=== PATIENT | female | born 1975 | race Caucasian/White ===

== ENCOUNTER 2018-07-23 20:10 | Emergency (ER) | payer BC ==
[~2018-07-23] VITALS: Ht 175.3 cm; Wt 63.5 kg
[2018-07-23] MEDS ORDERED: LORAZEPAM INJ 2 MG/ML VIAL ONE ×2 (20:50→21:44)
--- NOTE | 2018-07-23 20:50 | NUR ---
PT PRESENTED TO THE ER WITH A C/O SEIZURE. PT STATED THAT SHE IS HAVING MUSCLE SPASMS SINCE THIS AM.
--- NOTE | 2018-07-23 20:55 | NUR ---
BLOOD DRAW DONE AT THE BEDSIDE.
--- NOTE | 2018-07-23 20:58 | NUR ---
PT REC'D MEDICATION ORDERED.
[2018-07-23] MEDS ORDERED: LORAZEPAM INJ 2 MG/ML VIAL IVP ONE ×2 (21:00→21:30)
[2018-07-23 21:02] LABS: BASOPHILS % (AUTO) 0.7 % (0.0-2.0); EOSINOPHILS % (AUTO) 1.1 % (0.0-6.0); HEMATOCRIT 41 % (33-45); HEMOGLOBIN 13.7 g/dL (11.5-14.8); LYMPHOCYTES % (AUTO) 59.1 % (20.0-44.0); MEAN CORPUSCULAR HGB CONC 34 g/dl (31.0-36.0); MEAN CORPUSCULAR VOLUME 89 fL (82-100); MONOCYTES # (AUTO) 0.2 /CMM (0.1-1.30); MONOCYTES % (AUTO) 4.8 % (2.0-12.0); NEUTROPHILS # (AUTO) 1.8 /CMM (1.8-8.9); NEUTROPHILS % (AUTO) 34.3 % (43.0-81.0); PLATELET COUNT (AUTO) 208 /CMM (150-450); WHITE BLOOD COUNT (AUTO) 5.1 K/uL (4.3-11.0)
--- NOTE | 2018-07-23 21:06 | NUR ---
PT LEFT FOR CT VIA GURNEY.
[2018-07-23 21:12] LABS: CALCIUM, SERUM 8.8 mg/dL (8.5-10.1); CREATININE 0.8 mg/dL (0.6-1.3); POTASSIUM 4.1 mmol/L (3.5-5.1)
[2018-07-23 21:17] LABS: ALBUMIN 3.9 g/dL (3.4-5.0); BILIRUBIN,TOTAL 0.1 mg/dL (0.2-1.0); TOTAL PROTEIN, SERUM 8.4 g/dL (6.4-8.2)
[2018-07-23 21:39] LABS: LYMPHOCYTES % (MANUAL) 59 % (16-48); MONOCYTES % (MANUAL) 1 % (0-11.0); NEUTROPHILS % (MANUAL) 40 (42-76)
--- NOTE | 2018-07-23 22:14 | NUR ---
IV removed. Catheter intact and site benign. Pressure and 4x4 applied to site. No bleeding noted. Patient discharged to home in stable condition. Written and verbal after care instructions given. Patient verbalizes understanding of instruction AND RX. PT AMBULATED OUT WITH A STEADY GAIT. VSS
[2018-07-23 22:15] VITALS: BP 125/75
== END 2018-07-23 22:15 | disposition home or self-care (01) ==
LOC: ER 20:13
DX: R25.1 Tremor, unspecified (principal); F10.20 Alcohol dependence, uncomplicated; F41.9 Anxiety disorder, unspecified; Y90.9 Presence of alcohol in blood, level not specified
CPT/HCPCS: 36415; 70450; 80048; 80076; 85025; 96374; 96376; 99284; A4606; J2060 ×2

== ENCOUNTER 2019-01-15 16:55 | Emergency (ER) | payer BC, OTHER ==
[2019-01-15] MEDS ORDERED: ONDANSETRON HCL/PF 4 MG/2 ML VIAL ONE ×2 (17:25→18:32)
[2019-01-15] MEDS ORDERED: LORAZEPAM INJ 2 MG/ML VIAL ONE ×2 (17:26→18:33)
[2019-01-15] MEDS ORDERED: LORAZEPAM INJ 2 MG/ML VIAL IVP ONE (17:30)
[2019-01-15] MEDS ORDERED: Folic acid 1 MG in IV D5W 50 ML IV ONE (17:30)
[2019-01-15] MEDS ORDERED: ONDANSETRON HCL/PF 4 MG/2 ML VIAL IVP ONE (17:30)
[2019-01-15] MEDS ORDERED: Thiamine 100 MG in IV D5W 50 ML IV SCH (17:30)
[2019-01-15] MEDS ORDERED: IV NS 0.9% 1,000 ML BAG IV ONE ×2 (17:30→18:30)
[2019-01-15] MEDS ORDERED: Folic acid 1 MG/0.2 ML VIAL IM ONE (17:30)
[2019-01-15] MEDS ORDERED: LORAZEPAM INJ 2 MG/ML VIAL IV ONE (18:30)
[2019-01-15] MEDS ORDERED: ONDANSETRON HCL/PF - ER 4 MG/2 ML VIAL IV ONE (18:30)
== END 2019-01-15 20:24 | disposition home or self-care (01) ==
DX: F10.239 Alcohol dependence with withdrawal, unspecified (principal); R11.2 Nausea with vomiting, unspecified; R56.9 Unspecified convulsions; Y90.0 Blood alcohol level of less than 20 mg/100 ml; Z98.890 Other specified postprocedural states; Z90.89 Acquired absence of other organs; Z60.2 Problems related to living alone; Z88.2 Allergy status to sulfonamides; Z88.1 Allergy status to other antibiotic agents
CPT/HCPCS: 36415; 80048; 80076; 80307; 80329; 85025; 85730; 93005; 96361; 96365; 96367; 96375; 96376; 99284; G0480; J2060 ×2; J2405 ×3; J3411 ×2; J3490; J7030 ×2; J7060 ×3

== ENCOUNTER 2019-07-25 18:12 | Emergency (ER) | payer OTHER ==
[~2019-07-25] VITALS: Ht 172.7 cm; Wt 59.0 kg
[2019-07-25 18:21] VITALS: BP 123/86
--- NOTE | 2019-07-25 18:25 | NUR ---
BIB SELF C/O VAGINAL PAIN AND BURNING SENSATION STARTED TODAY. DENIES BLEEDING, DISCHARGE, . NO OTHER MEDICAL COMPLAINTS AT THIS TIME. NO ACUTE DISTRESS NOTED. MADE COMFORTABLE AND READY FOR EVAL.
--- NOTE | 2019-07-25 18:49 | NUR ---
Patient eloped from facility. ER MD notified.
== END 2019-07-25 18:59 | disposition left against medical advice (07) ==
LOC: ER 18:12
DX: B37.3 Candidiasis of vulva and vagina (principal); Z90.89 Acquired absence of other organs; Z98.890 Other specified postprocedural states; Z88.1 Allergy status to other antibiotic agents; Z88.2 Allergy status to sulfonamides; Z60.2 Problems related to living alone

== ENCOUNTER 2019-11-11 10:17 | Emergency (ER) | payer OTHER ==
[~2019-11-11] VITALS: Ht 172.7 cm; Wt 65.8 kg
--- NOTE | 2019-11-11 10:35 | NUR ---
patient came in to er c/o abdominal distention x 4 months. On room air, breathing evenly and unlabored. connected to the monitor and pulse ox. kept comfortable, will continue to monitor accordingly.
[2019-11-11] MEDS ORDERED: ONDANSETRON HCL/PF 4 MG/2 ML VIAL IVP ONE (11:00)
[2019-11-11] MEDS ORDERED: IV NS 0.9% 1,000 ML BAG IV ONE (11:00)
[2019-11-11] MEDS ORDERED: ONDANSETRON HCL/PF 4 MG/2 ML VIAL ONE (11:02)
--- NOTE | 2019-11-11 11:05 | NUR ---
URINE SPECIMEN COLLECTED AND SENT TO LAB.
--- NOTE | 2019-11-11 11:10 | NUR ---
IV LINE ESTABLISHED BLOOD DRAWN AND SENT TO LAB.
[2019-11-11 11:16] LABS: BASOPHILS # (AUTO) 0.1 /CMM (0.0-0.2); BASOPHILS % (AUTO) 1.3 % (0.0-2.0); EOSINOPHILS % (AUTO) 3.2 % (0.0-6.0); HEMATOCRIT 41 % (33-45); HEMOGLOBIN 13.4 g/dL (11.5-14.8); LYMPHOCYTES # (AUTO) 2.2 /CMM (0.8-4.8); LYMPHOCYTES % (AUTO) 48.2 % (20.0-44.0); MEAN CORPUSCULAR HGB CONC 33 g/dl (31.0-36.0); MEAN CORPUSCULAR VOLUME 95 fL (82-100); MONOCYTES # (AUTO) 0.3 /CMM (0.1-1.30); MONOCYTES % (AUTO) 6.4 % (2.0-12.0); NEUTROPHILS # (AUTO) 1.9 /CMM (1.8-8.9); NEUTROPHILS % (AUTO) 40.9 % (43.0-81.0); PLATELET COUNT (AUTO) 282 /CMM (150-450); RED BLOOD CELL COUNT(AUTO) 4.28 MIL/uL (4.0-5.2); WHITE BLOOD COUNT (AUTO) 4.5 K/uL (4.3-11.0)
[2019-11-11 11:21] LABS: APPEARANCE,URINE Clear (CLEAR); BILIRUBIN,URINE Negative (NEGATIVE); BLOOD, URINE Negative Ery/uL (NEGATIVE); CALCIUM, SERUM 8.7 mg/dL (8.5-10.1); COLOR,URINE Yellow (YELLOW); CREATININE 0.7 mg/dL (0.6-1.3); KETONES,URINE Negative (NEGATIVE); LEUKOCYTE ESTERASE ,URINE Negative (NEGATIVE); NITRITE, URINE Negative (NEGATIVE); POTASSIUM 3.7 mmol/L (3.5-5.1); PROTEIN,URINE Negative (NEGATIVE); UGLUCOSE Negative (NEGATIVE); UROBILINOGEN,URINE 0.2 EU/dL (0.2)
[2019-11-11 11:27] LABS: ALBUMIN 4.1 g/dL (3.4-5.0); BILIRUBIN,TOTAL 0.1 mg/dL (0.2-1.0); TOTAL PROTEIN, SERUM 8.3 g/dL (6.4-8.2)
--- NOTE | 2019-11-11 12:41 | NUR ---
IV removed. Catheter intact and site benign. Pressure and 4x4 applied to site. No bleeding noted. Patient discharged to home in stable condition. Written and verbal after care instructions given. Patient verbalizes understanding of instruction.
[2019-11-11 12:42] VITALS: BP 117/71
== END 2019-11-11 12:43 | disposition home or self-care (01) ==
LOC: ER 10:17
DX: R14.0 Abdominal distension (gaseous) (principal); F17.200 Nicotine dependence, unspecified, uncomplicated; Z98.890 Other specified postprocedural states; Z90.89 Acquired absence of other organs; Z88.1 Allergy status to other antibiotic agents; Z88.2 Allergy status to sulfonamides; Z60.2 Problems related to living alone
CPT/HCPCS: 36415; 80048; 80076; 81001; 83690; 84703; 85025; 96374; 99283; J2405; J7030; 81000-TC

== ENCOUNTER 2019-11-15 23:53 | Emergency (ER) | payer OTHER ==
[~2019-11-15] VITALS: Ht 175.3 cm; Wt 59.0 kg
--- NOTE | 2019-11-16 00:04 | NUR ---
PT CAME TO THE ED C/O RLE AND HIP PAIN S/P GLF. ABRASION NOTED. + MINIMAL SWELLING. PT AAOX4, AMBULATORY, VSS, NO ACUTE DISTRESS NOTED. AWAITING FOR MD CEE
--- NOTE | 2019-11-16 00:24 | NUR ---
TECH AT BEDSIDE FOR CLEANING.
[2019-11-16] MEDS ORDERED: BACITRACIN ZINC OINT PACKET 1 EA PACKET TP ONE (00:30)
--- NOTE | 2019-11-16 01:26 | NUR ---
GOOD SKIN CARE RENDERED. PT WAS PROVIDED W. SHAYY WRAP. MEDICALLY STABLE FOR D/C PER MD. Patient discharged to home in stable condition. Written and verbal after care instructions given. Patient verbalizes understanding of instruction.
[2019-11-16 01:27] VITALS: BP 133/75
== END 2019-11-16 01:28 | disposition home or self-care (01) ==
LOC: ER 23:59
DX: S90.511A Abrasion, right ankle, initial encounter (principal); R56.9 Unspecified convulsions; Z98.890 Other specified postprocedural states; Z90.89 Acquired absence of other organs; Z88.2 Allergy status to sulfonamides; Z88.8 Allergy status to other drugs, medicaments and biological substances; Z60.2 Problems related to living alone; W01.0XXA Fall on same level from slipping, tripping and stumbling without subsequent striking against object, initial encounter; Y93.89 Activity, other specified; Y92.89 Other specified places as the place of occurrence of the external cause; Y99.8 Other external cause status
CPT/HCPCS: 73610; 99283; A6403

== ENCOUNTER 2019-11-30 22:31 | Emergency (ER) | payer OTHER ==
[~2019-11-30] VITALS: Ht 175.3 cm; Wt 56.7 kg
--- NOTE | 2019-11-30 22:51 | NUR ---
PT CAME TO THE ED C/O L RIB PAIN. PT DENIES ANY TRAUMA. PT AAOX4, VSS, RESPIRATIONS EVEN ADN UNLABORED ON RA W/ NAD NOTED. PT CONNECTED TO THE MONITOR AND POX
[2019-11-30] MEDS ORDERED: KETOROLAC TROMETHAMINE INJ 30 MG/ML VIAL IV ONE (23:00)
--- NOTE | 2019-11-30 23:08 | NUR ---
CAME TO MEDICATE THE PATIENT. PT IS NOT IN THE ROOM.
--- NOTE | 2019-11-30 23:08 | NUR ---
Patient eloped from facility. ER MD notified.
[2019-11-30 23:35] VITALS: BP 111/75
== END 2019-11-30 23:35 | disposition left against medical advice (07) ==
LOC: ER 22:34
DX: R07.89 Other chest pain (principal); F17.210 Nicotine dependence, cigarettes, uncomplicated; Z98.890 Other specified postprocedural states; Z90.89 Acquired absence of other organs; Z98.82 Breast implant status; Z88.0 Allergy status to penicillin; Z88.2 Allergy status to sulfonamides; Z88.8 Allergy status to other drugs, medicaments and biological substances; Z60.2 Problems related to living alone